=== PATIENT | female | born 1995 | race American Indian/Alaskan Native ===

== ENCOUNTER 2019-09-24 17:44 | Emergency (ER) | payer BC ==
--- NOTE | 2019-09-24 18:35 | Emergency Department Report ---
HPI - General Chief Complaint: Allergic Reaction Time Seen by Provider: 09/24/19 18:30 - HPI HPI: Patient is a 23-year-old female that presents emergency room with complaints of rash and swelling to her face, arms. Patient states she has hives on her face, arms, trunk. Patient states she tried 3 new things today. Patient states she ate shrimp today, ate cherries today and tried a new electrolyte water. Patient states she feels warm. Patient denies shortness of breath. Patient denies throat pain. Patient denies throat closing. Patient denies chest pain. Patient denies difficulty breathing. Patient denies fever and chills. Patient states her symptoms are severe. Patient states that her eyes feel swollen. Patient denies lip swelling. Patient states her symptoms started approximately 1 hour prior to arrival. Patient states she took 25 mg of Benadryl with no results. ED Past Medical Hx - Past Medical History Previous Medical History?: No - Surgical History Past Surgical History?: No - Family History Family history: no significant - Social History Smoking Status: Never Smoker Substance Use Type: None - Medications Home Medications: Home Medications Medication Instructions Recorded Confirmed Last Taken Type methylPREDNISolone [Medrol 4MG 4 mg PO DAILY 6 Days #1 tab.ds.pk 09/24/19 Unknown Rx DOSEPAK (21 tabs)] ED Review of Systems ROS: Stated complaint: SWOLLEN FACE/ALLERGIC REACTION Other details as noted in HPI Constitutional: denies: chills, fever Eyes: denies: eye pain, eye discharge, vision change ENT: denies: ear pain, throat pain Respiratory: denies: cough, shortness of breath, wheezing Cardiovascular: denies: chest pain, palpitations Endocrine: no symptoms reported Gastrointestinal: denies: abdominal pain, nausea, diarrhea Genitourinary: denies: urgency, dysuria, discharge Musculoskeletal: denies: back pain, joint swelling, arthralgia Skin: rash, pruritus. denies: lesions Neurological: denies: headache, weakness, paresthesias Psychiatric: denies: anxiety, depression Hematological/Lymphatic: denies: easy bleeding, easy bruising Physical Exam - Physical Exam Physical Exam: The patient appeared well nourished and normally developed. Vital signs as documented. Head exam is unremarkable. No scleral icterus or corneal arcus noted. Neck is without jugular venous distension, thyromegaly, or carotid bruits. Carotid upstrokes are brisk bilaterally. Lungs are clear to auscultation and percussion. Cardiac exam reveals Rhythm is regular. First and second heart sounds normal. No murmurs, rubs or gallops. Abdominal exam reveals normal bowel sounds, no masses, no organomegaly and no aortic enlargement. Extremities are nonedematous and both femoral and pedal pulses are normal. Skin urticaria noted to the face, bilateral neck bilateral trunk bilateral upper extremities and abdominal region. Redness noted. No lip swelling noted. ED Course - Reevaluation(s) Reevaluation #1: Patient states she is feeling better. Patient states her rash has resolved. Patient denies chest pain or shortness of breath. Patient denies any compl aints. I discussed all results and clinical findings with patient. I discussed plan of care with patient. Patient agrees with plan of care. Patient is stable for discharge. Patient will be discharged home. Patient given discharge instructions. Patient voiced understanding of discharge instructions. 09/24/19 20:26 ED Medical Decision Making - Medical Decision Making Patient is a 23-year-old female that presents emergency room with an allergic reaction. Patient found to have generalized hives and some facial swelling. Patient did not have any shortness of breath, difficulty breathing or oral swelling or lip swelling. Patient given steroids and Pepcid. Patient took Benadryl prior to arrival. Patient responded well to treatment. Patient's rash resolved prior to discharge. Patient discharged home. Patient stable for discharge. - Differential Diagnosis Allergic reaction, hives, rash, Critical care attestation.: If time is entered above; I have spent that time in minutes in the direct care of this critically ill patient, excluding procedure time. ED Disposition Clinical Impression: Urticaria Allergic reaction Qualifiers: Encounter type: initial encounter Qualified Code(s): T78.40XA - Allergy, unspecified, initial encounter Disposition: DC-01 TO HOME OR SELFCARE Is pt being admited?: No Does the pt Need Aspirin: No Condition: Stable Instructions: Antihistamine (By mouth), Urticaria (ED), Allergies (ED) Additional Instructions: Patient to follow-up with primary care in 2 to 3 days. Patient to follow-up with director clinical pharmacology in 2 to 3 days. Patient to rest. Patient to increase water. . Patient to take meds as directed. Patient to return to the ER if condition worsens, changes or new symptoms arise. Patient to keep a rash log. Patient to avoid any new foods. Patient to avoid shrimp, cherries and electrolyte haley. Prescriptions: methylPREDNISolone [Medrol 4MG DOSEPAK (21 tabs)] 4 mg PO DAILY 6 Days #1 tab.ds.pk Referrals: JERRI DE LEON MD [Referring] - 2-3 Days Forms: Work/School Release Form(ED) Time of Disposition: 20:23
[2019-09-24] MEDS ORDERED: methylPREDNISolone Sod Succinate 125 MG/2 ML INJ IV ONE (18:36)
[2019-09-24] MEDS ORDERED: FAMOTIDINE 20 MG/2 ML INJ IV ONE (18:36)
[2019-09-24 20:49] VITALS: BP 98/58
== END 2019-09-24 21:20 | disposition home or self-care (01) ==
LOC: ED 17:44
DX: T78.40XA Allergy, unspecified, initial encounter (principal); L50.9 Urticaria, unspecified; Z79.899 Other long term (current) drug therapy; X58.XXXA Exposure to other specified factors, initial encounter; Y93.89 Activity, other specified; Y92.89 Other specified places as the place of occurrence of the external cause; Y99.8 Other external cause status
CPT/HCPCS: 96374; 96375; 99283; J2930

== ENCOUNTER 2019-09-26 11:13 | Emergency (ER) | payer BC ==
[2019-09-26 11:27] VITALS: BP 115/79
--- NOTE | 2019-09-26 11:28 | Emergency Department Report ---
Chief Complaint: Allergic Reaction Stated Complaint: MEDICATION ALLREGIC REACTION Time Seen by Provider: 09/26/19 11:24 - HPI History of Present Illness: 23 yo female returns for allergic reaction. taking medrol dose candi. Has redness at left clavicle region. Recommended hydrocortisoen cream. MSE completed MSE screening note: Focused history and physical exam performed. Due to findings the following was ordered: ED Disposition for MSE Clinical Impression: Contact dermatitis Disposition: MED SCREENING EXAM-LEFT Condition: Stable Referrals: CLAUDIA DENSON MD [Staff Physician] - 3-5 Days
== END 2019-09-26 11:38 | disposition left against medical advice (07) ==
LOC: ED 11:13
DX: L25.9 Unspecified contact dermatitis, unspecified cause (principal); Y92.89 Other specified places as the place of occurrence of the external cause
CPT/HCPCS: 99281